=== PATIENT | female | born 1995 | race Caucasian/White ===

== ENCOUNTER 2017-03-23 11:25 | Emergency (ER) | payer SELFPAY ==
[2017-03-23] MEDS ORDERED: ONDANSETRON HCL INJ/PF 4 MG/2 ML SDV IV ONE ×2 (11:45→12:16)
[2017-03-23] MEDS ORDERED: NORMAL SALINE 1000 ML 1,000 ML IV ONE ×2 (11:45→12:50)
--- NOTE | 2017-03-23 11:47 | ER Document Report ---
ED Medical Screen (RME) - General Chief Complaint: Nausea/Vomiting Stated Complaint: VOMITING Time Seen by Provider: 03/23/17 11:45 Mode of Arrival: Ambulatory Information source: Patient TRAVEL OUTSIDE OF THE [place] IN LAST 30 DAYS: No - HPI Patient complains to provider of: abd pain Onset: Other - pt. with 6 day h/o recurrent vomiting with abd pain. Denies diarrhea - Related Data Allergies/Adverse Reactions: No Known Allergies Allergy (Unverified 03/23/17 11:31) Home Medications: Current Home Medications Albuterol Sulfate [Proair HFA] 1 - 2 puff IH Q4 PRN 03/23/17 [History] Past Medical History - Social History Frequency of alcohol use: None Drug Abuse: None Renal/ Medical History: Denies: Hx Peritoneal Dialysis Physical Exam - Vital signs Vitals: Temp Pulse Resp BP Pulse Ox 97.9 F 72 18 133/77 H 98 03/23/17 11:29 03/23/17 11:29 03/23/17 11:29 03/23/17 11:29 03/23/17 11:29 Course - Vital Signs Vital signs: Temp Pulse Resp BP Pulse Ox 97.9 F 72 18 133/77 H 98 03/23/17 11:29 03/23/17 11:29 03/23/17 11:29 03/23/17 11:29 03/23/17 11:29
[2017-03-23 12:25] LABS: ABSOLUTE LYMPHOCYTES (AUTO) 0.9 10^3/uL (0.5-4.7); ABSOLUTE MONOCYTES (AUTO) 0.9 10^3/uL (0.1-1.4); ABSOLUTE NEUT (AUTO) 7.4 10^3/uL (1.7-8.2); BASOPHILS % (AUTO) 0.4 % (0-2); EOSINOPHILS % (AUTO) 0.3 % (0-6); HEMATOCRIT 41.8 % (36.0-47.0); HEMOGLOBIN 14.3 g/dL (12.0-15.5); HGB HCT DIFFERENCE 1.1; MEAN CORPUSCULAR HEMOGLOBIN 30.1 pg (27.0-33.4); MEAN CORPUSCULAR HGB CONC 34.2 g/dL (32.0-36.0); MEAN CORPUSCULAR VOLUME 88 fl (80-97); RED BLOOD COUNT 4.74 10^6/uL (3.72-5.28); RED CELL DISTRIBUTION WIDTH 14.3 % (11.5-14.0); SEGMENTED NEUTROPHILS % (AUTO) 79.3 % (42-78); WHITE BLOOD COUNT 9.3 10^3/uL (4.0-10.5)
--- NOTE | 2017-03-23 12:26 | ER Document Report ---
ED General - General Chief Complaint: Nausea/Vomiting Stated Complaint: VOMITING Time Seen by Provider: 03/23/17 11:45 Mode of Arrival: Ambulatory TRAVEL OUTSIDE OF THE [place] IN LAST 30 DAYS: No - HPI Notes: Patient is a 21-year-old female with no significant past medical history presents the ED complaining of nausea, vomiting, occ loose stool, decreased p.o. intake 6 days along with right lower quadrant abdominal pain. Patient states that she has not been able to keep any food or liquids down. Patient states that the pain will occasionally radiate into her lower back, but is primarily to the right lower quadrant. Patient does not have any hematemesis. Patient states that most of her emesis is yellow/bile. Patient has not had any recent illness. Vkcr-cll-phmeppm meds have not been helping. Patient states that she is currently on day 5 of her menstrual cycle and has been normal/ regular. No other concerns or complaints. Denies any headache, fever, URI, sore throat, chest pain, palpitations, syncope, cough, shortness of breath, wheeze, dyspnea, urinary retention, dysuria, hematuria, loss of control of bowel or bladder, numbness/tingling, saddle anesthesia, muscle paralysis/ weakness, or rash. + smoke, denies IV drug use. - Related Data Allergies/Adverse Reactions: No Known Allergies Allergy (Unverified 03/23/17 11:31) Home Medications: Current Home Medications Albuterol Sulfate [Proair HFA] 1 - 2 puff IH Q4 PRN 03/23/17 [History] Past Medical History - General Information source: Patient - Social History Smoking Status: Current Every Day Smoker Frequency of alcohol use: None Drug Abuse: None Family History: Reviewed & Not Pertinent Patient has suicidal ideation: No Patient has homicidal ideation: No Renal/ Medical History: Denies: Hx Peritoneal Dialysis Review of Systems - Review of Systems Notes: REVIEW OF SYSTEMS: CONSTITUTIONAL : Denies fever, chills, or sweats. Denies recent illness. EENT: Denies eye, ear, throat, or mouth pain or symptoms. Denies nasal or sinus congestion or discharge. Denies throat, tongue, or mouth swelling or difficulty swallowing. CARDIOVASCULAR: Denies chest pain. Denies palpitations or racing or irregular heart beat. Denies ankle edema. RESPIRATORY: Denies cough, cold, or chest congestion. Denies shortness of breath, difficulty breathing, or wheezing. GASTROINTESTINAL: see hpi GENITOURINARY: Denies difficulty urinating, painful urination, burning, frequency, blood in urine, or discharge. FEMALE GENITOURINARY: Denies vaginal bleeding, heavy or abnormal periods, irregular periods. Denies vaginal discharge or odor. MUSCULOSKELETAL: see hpi. Denies joint pain or swelling. SKIN: Denies rash, lesions or sores. NEUROLOGICAL: Denies confusion or altered mental status. Denies passing out or loss of consciousness. Denies dizziness or lightheadedness. Denies headache. Denies weakness or paralysis or loss of use of either side. Denies problems with gait or speech. Denies sensory loss, numbness, or tingling. ALL OTHER SYSTEMS REVIEWED AND NEGATIVE. Dictation was performed using [employer] voice recognition software Physical Exam - Vital signs Vitals: Temp Pulse Resp BP Pulse Ox 97.9 F 72 18 133/77 H 98 03/23/17 11:29 03/23/17 11:29 03/23/17 11:29 03/23/17 11:29 03/23/17 11:29 Notes: PHYSICAL EXAMINATION: GENERAL: Well-appearing, well-nourished and in no acute distress. LUNGS: Breath sounds clear to auscultation bilaterally and equal. No wheezes rales or rhonchi. HEART: Regular rate and rhythm without murmurs, rubs, gallops. ABDOMEN: Soft, nondistended abdomen. no rebound. No masses appreciated. Normal bowel sounds present. No CVA tenderness bilaterally. + tenderness at McBurney's point- brought patient to tears. + mild guarding present to RLQ. Musculoskeletal: LE's b/l: FROM to passive/active. Strength 5+/5. Extremities: No cyanosis, clubbing, or edema b/l. Peripheral pulses 2+. Capillary refill less than 3 seconds. NEUROLOGICAL: Normal speech, normal gait. Normal sensory, motor exams PSYCH: Normal mood, normal affect. SKIN: Warm, Dry, normal turgor, no rashes or lesions noted. Course - Re-evaluation Re-evalutation: 03/23/17 13:58 Pt starting her 2nd liter of NS currently. Pt has not vomited since she was given zofran. Pt continues to have pain to her RLQ and near the umbilicus. + tenderness continues. Reviewed with Dr. Martinez: labs showing renal failure. add urine drug screen. consult gen surg. Reviewed with Dr. Ricks: Rehydrate and recheck bun/cr level. Most likely gastroenteritis. 03/23/17 17:17 CT scan unremarkable for acute pathology. 2L NS to be given to patient to help kidneys s/p IV contrast and mild dehydration. Reglan 10mg given IV for her nausea/vomiting x1 recently. 03/23/17 18:51 Patient is an afebrile, well-hydrated, 21-year-old female who presents the ED with gastroenteritis. Vitals are stable. PE is otherwise unremarkable. Patient is tolerating p.o. Patient only vomited once while in the ED. CBC, hCG , urinalysis was unremarkable for any acute pathology. Her CMP was significant for mildly elevated sodium and acute renal failure. Patient was rehydrated and her creatinine GFR began to improve after [address] scan of the abdomen pelvis was unremarkable for any acute pathology. Another 2 L of normal saline was given thereafter. Low suspicion/risk for acute appendicitis, bowel obstruction, acute cholecystitis, acute cholangitis, perforated diverticulitis, incarcerated hernia, pancreatitis, perforated ulcer, peritonitis, sepsis, pelvic inflammatory disease, ectopic , tubo-ovarian abscess, ovarian torsion, or other systemic emergent condition at this time. Patient is aware that her condition can change from initial presentation and she needs to monitor symptoms closely and seek medical attention if any acute changes. I will send her home with a prescription for Zofran that she may take and use as directed. Conservative measures otherwise for symptoms. Recheck with your PCM in 3-5 days. Consider consult with a powerhouse operator. Return to the ED with any worsening/concerning symptoms otherwise as reviewed in discharge. Patient is in agreement. - Vital Signs Vital signs: Temp Pulse Resp BP Pulse Ox 97.6 F 88 18 132/77 H 99 03/23/17 15:06 03/23/17 15:06 03/23/17 15:06 03/23/17 15:06 03/23/17 15:06 - Laboratory Result Diagrams: 03/23/17 12:04 03/23/17 14:53 Laboratory results interpreted by me: 03/23/17 03/23/17 03/23/17 12:04 12:04 12:40 RDW 14.3 H Seg Neutrophils % 79.3 H Lymphocytes % 10.0 L Sodium 145.6 H Chloride BUN 21 H Creatinine 1.64 H Est GFR ( Amer) 48 L Est GFR (Non-Af Amer) 40 L Calcium Direct Bilirubin 0.5 H Urine Protein 100 H Urine Ketones TRACE H Urine Blood SMALL H 03/23/17 14:53 RDW Seg Neutrophils % Lymphocytes % Sodium Chloride 112 H BUN Creatinine 1.47 H Est GFR ( Amer) 55 L Est GFR (Non-Af Amer) 45 L Calcium 8.2 L Direct Bilirubin Urine Protein Urine Ketones Urine Blood Discharge - Discharge Clinical Impression: Gastroenteritis Condition: Stable Disposition: HOME, SELF-CARE Instructions: Antinausea Medication ([facility]), Gastroenteritis (adult) ([facility]), OTC Antidiarrhea Medication ([facility]), Vomiting ([facility]) Additional Instructions: Maintain adequate fluid and food intake Nebo diet ([employer] Bananas, rice, apples, toast, etc Zofran as needed tylenol if needed Monitor for any worsening symptoms Make sure you are staying hydrated enough to urinate and have normal BM's Recheck with your PCM in 3-5 days--you need to have your Renal (kidney) function tests rechecked this week Consider consult with Gastroenterology for ongoing/worsening symptoms Return to the ED with any worsening symptoms and/or development of fever, headache, chest pain, palpitations, syncope, shortness of breath, trouble breathing, abdominal pain, n/v/d, blood in stool/urine, weakness, or other worsening symptoms that are concerning to you. Prescriptions: Ondansetron [Zofran Odt 4 mg Tablet] 1 - 2 tab PO Q4H PRN #15 tab.rapdis PRN Reason: For Nausea/Vomiting Forms: Elevated Blood Pressure, Smoking Cessation Education Referrals: CATRACHO MORENO FNP-C [Primary Care Provider] - Follow up in 3-5 days MERNA MANZO MD [ACTIVE STAFF] - Follow up in 3-5 days
[2017-03-23 12:41] LABS: ALANINE AMINOTRANSFERASE 29 U/L (9-52); ALBUMIN 4.7 g/dL (3.5-5.0); ALKALINE PHOSPHATASE 74 U/L (38-126); ANION GAP 18 (5-19); ASPARTATE AMINO TRANSFERASE 23 U/L (14-36); BILIRUBIN,DIRECT 0.5 mg/dL (0.0-0.4); BILIRUBIN,TOTAL 0.9 mg/dL (0.2-1.3); BLOOD UREA NITROGEN 21 mg/dL (7-20); CALCIUM 9.6 mg/dL (8.4-10.2); CARBON DIOXIDE 23 mmol/L (22-30); CHLORIDE 105 mmol/L (98-107); CREATININE RESULT 1.64 mg/dL (0.52-1.25); GLUCOSE 108 mg/dL (75-110); POTASSIUM 3.6 mmol/L (3.6-5.0); SODIUM 145.6 mmol/L (137-145)
--- NOTE | 2017-03-23 13:11 | RADIOLOGY REPORT (SQ) ---
EXAM DESCRIPTION: ACUTE ABDOMEN SERIES COMPLETED DATE/TIME: 03/23/2017 1:01 pm REASON FOR STUDY: abd pain COMPARISON: None. NUMBER OF VIEWS: Three views. TECHNIQUE: Frontal chest, supine abdomen and upright/decubitus abdomen radiographic images acquired. LIMITATIONS: None. FINDINGS: CHEST: Lungs clear of infiltrates. FREE AIR: None. No abnormal gas collections. BOWEL GAS PATTERN: Nonobstructive pattern. No dilated loops or air fluid levels. CALCIFICATIONS: No suspicious calcifications. HARDWARE: None in the abdomen. SOFT TISSUES: No gross mass or suggestion of organomegaly. BONES: No acute fracture. No worrisome bone lesions. OTHER: No other significant finding. IMPRESSION: NO RADIOGRAPHIC EVIDENCE FOR ACUTE ABDOMINAL DISEASE. TECHNICAL DOCUMENTATION: JOB ID: [id number] [employer]- All Rights Reserved
[2017-03-23 13:15] LABS: APPEARANCE,URINE CLEAR; BILIRUBIN,URINE NEGATIVE (NEGATIVE); GLUCOSE, URINE NEGATIVE (NEGATIVE); KETONES,URINE TRACE mg/dL (NEGATIVE); LEUKOCYTE ESTERASE,URINE NEGATIVE (NEGATIVE); NITRITE,URINE NEGATIVE (NEGATIVE); PROTEIN,URINE 100 mg/dL (NEGATIVE); URINE SPECIFIC GRAVITY 1.008; UROBILINOGEN,URINE NEGATIVE mg/dL (<2.0)
[2017-03-23 14:48] LABS: URINE BARBITURATES SCREEN NEGATIVE; URINE METHADONE SCREEN NEGATIVE; URINE OPIATES LOW NEGATIVE; URINE PHENCYCLIDINE SCREEN NEGATIVE
[2017-03-23 15:21] LABS: ANION GAP 11 (5-19); BLOOD UREA NITROGEN 19 mg/dL (7-20); CALCIUM 8.2 mg/dL (8.4-10.2); CARBON DIOXIDE 22 mmol/L (22-30); CHLORIDE 112 mmol/L (98-107); CREATININE RESULT 1.47 mg/dL (0.52-1.25); GLUCOSE 89 mg/dL (75-110); POTASSIUM 3.6 mmol/L (3.6-5.0)
[2017-03-23] MEDS ORDERED: MORPHINE SULFATE 10 MG/ML INJ IV ONE (15:54)
--- NOTE | 2017-03-23 17:03 | RADIOLOGY REPORT (SQ) ---
EXAM DESCRIPTION: CT ABD/PELVIS WITH IV ONLY COMPLETED DATE/TIME: 03/23/2017 4:43 pm REASON FOR STUDY: RLQ pain COMPARISON: None. TECHNIQUE: CT scan of the abdomen and pelvis performed using helical scanning technique with dynamic intravenous contrast injection. No oral contrast. Images reviewed with lung, soft tissue, and bone windows. Reconstructed coronal and sagittal MPR images reviewed. Delayed images for evaluation of the urinary system also acquired. All images stored on PACS. All CT scanners at this facility use dose modulation, iterative reconstruction, and/or weight based d osing when appropriate to reduce radiation dose to as low as reasonably achievable (ALARA). [facility]: Dose Right [facility]: CareDose [facility]: Dose Right [facility]: Teradose 4D [facility]: [employer] CONTRAST TYPE AND DOSE: contrast/concentration: Isovue 300.00 mg/ml; Total Contrast Delivered: 99.0 ml; Total Saline Delivered: 47.0 ml RENAL FUNCTION: Creatinine 1.47 RADIATION DOSE: Up-to-date CT equipment and radiation dose reduction techniques were employed. CTDIv ol: 5.4 - 6.3 mGy. DLP: 574 mGy-cm.. LIMITATIONS: None. FINDINGS: LOWER CHEST: No significant findings. No nodules or infiltrates. LIVER: Normal size. No masses. No dilated ducts. SPLEEN: Normal size. No focal lesions. PANCREAS: No masses. No significant calcifications. No adjacent inflammation or peripancreatic fluid collections. Pancreatic duct not dilated. GALLBLADDER: No identified stones by CT criteria. No inflammatory changes to suggest cholecystitis. ADRENAL GLANDS: No significant masses or asymmetry. RIGHT KIDNEY AND URETER: No solid masses. No significant calcifications. No hydronephrosis or hyd roureter. LEFT KIDNEY AND URETER: No solid masses. No significant calcifications. No hydronephrosis or hydr oureter. AORTA AND VESSELS: No aneurysm. No dissection. Renal arteries, SMA, celiac without stenosis. RETROPERITONEUM: No retroperitoneal adenopathy, hemorrhage or masses. BOWEL AND PERITONEAL CAVITY: No masses or inflammatory changes. No free fluid or peritoneal masses. APPENDIX: Normal. PELVIS: No mass. No free fluid. Normal bladder. ABDOMINAL WALL: No masses. No hernias. BONES: No significant or acute findings. OTHER: No other significant finding. IMPRESSION: NO SIGNIFICANT OR ACUTE FINDING IN THE ABDOMEN OR PELVIS ON CT SCAN WITH IV CONTRAST. TECHNICAL DOCUMENTATION: JOB ID: [id number] Quality ID # [id number]: Final reports with documentation of one or more dose reduction techniques (e.g., Au tomated exposure control, adjustment of the mA and/or kV according to patient size, use of iterative reconstruction technique) 2010 [employer]- All Rights Reserved
[2017-03-23] MEDS ORDERED: METOCLOPRAMIDE HCL INJ/PF 10 MG/2 ML SDV IV ONE (17:13)
[2017-03-23] MEDS: NORMAL SALINE 1000 ML 1,000 ML IV PRN ×2 (17:31→17:33)
[2017-03-23 19:17] VITALS: BP 122/76
== END 2017-03-23 19:41 | disposition home or self-care (01) ==
LOC: ER 11:25
DX: K52.9 Noninfective gastroenteritis and colitis, unspecified (principal); R11.2 Nausea with vomiting, unspecified; R63.0 Anorexia; R10.31 Right lower quadrant pain; F17.200 Nicotine dependence, unspecified, uncomplicated
CPT/HCPCS: 99284; 96361; 96374; 96375; 36415; 83690; 85025; 81025; 80048; 80053; 81001; 80307; 74022; 74177; J2765; J2270; J2405; J7030

== ENCOUNTER 2019-02-24 00:10 | Outpatient (CLI) | payer MEDICAID ==
[2019-02-24 01:16] LABS: APPEARANCE,URINE CLOUDY; BILIRUBIN,URINE NEGATIVE (NEGATIVE); COLOR,URINE YELLOW; GLUCOSE, URINE 50 mg/dL (NEGATIVE); KETONES,URINE NEGATIVE (NEGATIVE); LEUKOCYTE ESTERASE,URINE SMALL (NEGATIVE); NITRITE,URINE NEGATIVE (NEGATIVE); PROTEIN,URINE 100 mg/dL (NEGATIVE); URINE SPECIFIC GRAVITY 1.025; UROBILINOGEN,URINE NEGATIVE mg/dL (<2.0)
[2019-02-24 01:47] LABS: URINE AMPHETAMINES SCREEN NEGATIVE; URINE BARBITURATES SCREEN NEGATIVE; URINE BENZODIAZEPINES SCREEN NEGATIVE; URINE COCAINE SCREEN NEGATIVE; URINE METHADONE SCREEN NEGATIVE; URINE PHENCYCLIDINE SCREEN NEGATIVE
--- NOTE | 2019-02-24 01:52 | Non Stress Test Report ---
Non Stress Test Datetime Report Generated by CPN: 02/24/2019 01:51 DEMOGRAPHIC EGA NST: 40.2 INDICATION Indication for Study: Ordered by Provider MONITORING Monitor Explained: Monitor Explained; Test Explained; Patient Verbalized Understanding Time on Monitor: 02/24/2019 00:36 Time off Monitor: 02/24/2019 01:28 NST Duration: 52 NST INTERVENTIONS NST Interventions: PO Hydration Physician Notified NST: Dr. Tino BABY A: [id number] BABY A Movement : Present Contraction Frequency : 0 FHR Baseline : 135 FHR Baseline : 135 Accelerations : 15X15 Decelerations : None Variability : Moderate 6-25bpm NST Review: Meets Criteria for Reactive NST NST Review and Verified By : LOUISA Bruce Results: Reactive NST REPORT Report Trigger: Send Report
[2019-02-24 01:53] LABS: URINE MARIJUANA (THC) SCREEN UNCONFIRMED POSITIVE
== END 2019-02-24 01:46 | disposition home or self-care (01) ==
LOC: LC 00:10
PROVIDERS: ATTEND Obstetrics & Gynecology
PROC: 4A1HXCZ Monitoring of Products of Conception, Cardiac Rate, External Approach (ICD-10-PCS; principal; 2019-02-24)
DX: O48.0 Post-term pregnancy (principal); Z3A.40 40 weeks gestation of pregnancy
CPT/HCPCS: 59025; 81005; 80307; G0480 ×2; 80349

== ENCOUNTER 2019-02-25 05:01 | Inpatient (IN) | payer MEDICAID ==
[2019-02-25] MEDS ORDERED: RINGERS SOLUTION,LACTATED 1,000 ML IV PRN (05:09)
[2019-02-25] MEDS ORDERED: OXYTOCIN/NORMAL SALINE 20 UNIT/1,000 ML RTUINJ IV PRN ×2 (05:09→14:30)
[2019-02-25] MEDS ORDERED: RINGERS SOLUTION,LACTATED 300 ML IV ONE (06:00)
[2019-02-25 07:14] LABS: HEMATOCRIT 29.7 % (36.0-47.0); HEMOGLOBIN 9.4 g/dL (12.0-15.5); MEAN CORPUSCULAR HEMOGLOBIN 25.6 pg (27.0-33.4); MEAN CORPUSCULAR HGB CONC 31.7 g/dL (32.0-36.0); MEAN CORPUSCULAR VOLUME 81 fl (80-97); PLATELET COUNT 174 10^3/uL (150-450); RED BLOOD COUNT 3.68 10^6/uL (3.72-5.28); RED CELL DISTRIBUTION WIDTH 16.3 % (11.5-14.0); WHITE BLOOD COUNT 11.5 10^3/uL (4.0-10.5)
[2019-02-25 07:26] LABS: APPEARANCE,URINE CLEAR; BILIRUBIN,URINE NEGATIVE (NEGATIVE); COLOR,URINE YELLOW; GLUCOSE, URINE NEGATIVE (NEGATIVE); KETONES,URINE NEGATIVE (NEGATIVE); LEUKOCYTE ESTERASE,URINE NEGATIVE (NEGATIVE); NITRITE,URINE NEGATIVE (NEGATIVE); PROTEIN,URINE NEGATIVE (NEGATIVE); URINE SPECIFIC GRAVITY 1.011; UROBILINOGEN,URINE NEGATIVE mg/dL (<2.0)
[2019-02-25 07:45] LABS: URINE AMPHETAMINES SCREEN NEGATIVE; URINE BARBITURATES SCREEN NEGATIVE; URINE BENZODIAZEPINES SCREEN NEGATIVE; URINE COCAINE SCREEN NEGATIVE; URINE MARIJUANA (THC) SCREEN NEGATIVE; URINE METHADONE SCREEN NEGATIVE; URINE PHENCYCLIDINE SCREEN NEGATIVE
[2019-02-25 07:46] LABS: ABSOLUTE LYMPHOCYTES# (MANUAL) 1.7 10^3/uL (0.5-4.7); ABSOLUTE MONOCYTES # (MANUAL) 0.9 10^3/uL (0.1-1.4); ANISOCYTOSIS 1+; BAND NEUTROPHILS % (MANUAL) 4 % (3-5); BASOPHILS % (MANUAL) 0 % (0-2); EOSINOPHILS % (MANUAL) 1 % (0-6); LYMPHOCYTES % (MANUAL) 15 % (13-45); MONOCYTES % (MANUAL) 8 % (3-13); PLATELET COMMENT ADEQUATE; POLYCHROMASIA SLIGHT; SEGMENTED NEUTROPHILS % (MAN) 72 % (42-78); TOTAL CELLS COUNTED 100
[2019-02-25] MEDS ORDERED: OXYTOCIN/NORMAL SALINE 20 UNIT/1,000 ML RTUINJ ONE (08:06)
[2019-02-25] MEDS ORDERED: OXYTOCIN 10 UNIT/ML VIAL ONE (08:06)
[2019-02-25] MEDS ORDERED: LIDOCAINE 1% INJ-PF (10 MG/ML) 30 ML SDV ONE (08:06)
[2019-02-25] MEDS ORDERED: MISOPROSTOL 0.2 MG TABLET ONE (08:06)
--- NOTE | 2019-02-25 08:26 | Admission Physical ---
Datetime Report Generated by CPN: 02/25/2019 08:26 CURRENT ADMISSION Hx Assessment: The History has been Reviewed and is Current Chief Complaint: Scheduled Induction of Labor Indication for Induction: Post Dates Admit Impression : Term, Intrauterine Admit Plan: Admit to Unit; Initiate Labor Protocol; Initiate Labor Augmentation Protocol ALLERGIES Medication Allergies: Unknown Medication Allergies: No Known Allergies (02/24/2019) Latex: Unknown OBSTETRICAL HISTORY EDC: 02/22/2019 00:00 : 2 Para: 1 Term: 1 : 0 SAB: 0 IAB: 0 Livin Gestational Diabetes: No Rh Sensitization: No Incompetent Cervix: No ADENIKE: No Infertility: No ART Treatment: No Uterine Anomaly: No IUGR: No Hx Previous C/S: No Macrosomia: No Hx Loss/Stillborn: No PIH: No Hx : No Placenta Previa/Abruption: No Depression/PP Depression: No PTL/PROM: No Post Hemorrhage: No Current Procedures: NST SEE RECORDS Alcohol: No Marijuana : No Cocaine: No Other Illicit Drugs: No Cigarettes: Current Some Day Smoker. [id number] Cigarette Frequency: < 5 per day Advised to Stop: Yes Cigarette Comments: 1 cigarette per day. MEDICAL HISTORY Diabetes: No Blood Transfusion: No Pulmonary Disease (Asthma, TB): Yes Breast Disease: No Hypertension: No Lead Software Engineer Surgery: No Heart Disease: No Hosp/Surgery: No Autoimmune Disorder: No Anesthetic Complications: No Kidney Disease: No Abnormal Pap Smear: No Neuro/Epilepsy: No Psychiatric Disorders: No Other Medical Diseases: No Hepatitis/Liver Disease: No Significant Family History: No Varicosities/Phlebitis: No Trauma/Violence : No Thyroid Dysfunction: No Medical History Comments: diabetes and heart disease run in pt's mom's family INFECTIOUS HISTORY Gonorrhea: No Genital Herpes: No Chlamydia: No Tuberculosis: No Syphilis: No Hepatitis: No HIV/AIDS Exposure: No Rash or Viral Illness: No HPV: No PHYSICAL EXAM General: Normal HEENT: Normal Neurologic: Normal Thyroid: Normal Heart: Normal Lungs: Normal Breast: Normal Back: Normal Abdomen: Normal Genitourinary Exam: Normal Extremities: Normal DTRs: Normal Pelvic Type: Adequate Vital Signs: Reviewed; Within Normal Limits VAGINAL EXAM Dilatation: 5 Effacement: 75 Station: -2 Contraction Comments: no regular FETUS A EGA: 40.3 Monitoring: External US FHR- Baseline: 140 Variability: Moderate 6-25bpm Accelerations: 15X15 Decelerations: None FHR Category: Category I Presentation: Vertex Admit Comment: at 40.3 wks EGA for IOL d/t GDM -Admit to LDR -NPO and IVFs -GBS negative -Plan for PItocin low dose protocol and AROM when able -Anticipate PLANS FOR LABOR AND DELIVERY Labor and Delivery: None Pain Management: Natural; Medications Feeding Preference: Formula Circumcision: N/A INFORMED CONSENT Informed Consent Obtained: Vaginal Delivery; Risks, Benefits and Alternatives Discussed Signature: with User ID: [email or web address] : with User ID: [email or web address]
--- NOTE | 2019-02-25 13:18 | Delivery Summary ---
Del Sum A-C Datetime Report Generated by CPN: 02/25/2019 13:18 DELIVERY PERSONNEL DELIVERY PERSONNEL: [id number] Delivery Doctor:: Leesa Schroeder MD Labor and Delivery Nurse:: Ellen Ortiz RN Nursery Nurse:: Barbara Lara RN Nursery Nurse:: Thomas NOEL RN Profiling Machine Set Up Operator/STRATEGIC DEBRIEFING SPECIALIST: Lala Juan Carlos, JUDICIAL ASSISTANT MATERNAL INFORMATION Delivery Anesthesia: None Medications After Delivery: Pitocin Bolus-Please Comment; Pitocin Drip 20 Units/1000ml NSS Maternal Complications: None LABOR SUMMARY EDC: 02/22/2019 00:00 No. Babies in Womb: 1 Attempted: No Labor Anesthesia: None LABOR INFORMATION Reason for Induction: Post Dates Onset of Labor: 02/25/2019 09:30 Complete Dilatation: 02/25/2019 12:18 Oxytocin: Augmentation Group B Beta Strep: negative Antibiotics # of Doses: 0 Steroids Given: None Reason Steroids Not Administered: Not Applicable MEMBRANES Membranes Rupture Method: Artificial Rupture of Membranes: 02/25/2019 10:20 Length of Rupture (hr): 2.03 Amniotic Fluid Color: Clear Amniotic Fluid Amount: Small STAGES OF LABOR Stage 1 hr: 2 Stage 1 min: 48 Stage 2 hr: 0 Stage 2 min: 4 Stage 3 hr: 0 Stage 3 min: 4 Total Time in Labor hr: 2 Total Time in Labor min: 56 VAGINAL DELIVERY Episiotomy: None Laceration #1: Perineal Laceration Extension #1: First Degree Laceration Repair: Yes Sponge Count Correct: N/A Sharps Count Correct: N/A BABY A INFORMATION Infant Delivery Date/Time: 02/25/2019 12:22 Method of Delivery: Vaginal Born in Route : No : N/A Forceps: N/A Vacuum Extraction: N/A Shoulder Dystocia : No PRESENTATION/POSITION BABY A Presentation: Cephalic Cephalic Presentation: N/A Vertex Position: Left Occipital Anterior Breech Presentation: N/A PLACENTA INFORMATION BABY A Placenta Delivery Time : 02/25/2019 12:26 Placenta Method of Delivery: Spontaneous Placenta Status: Delivered SCORES BABY A Heart Rate 1 min: >100 bpm Resp Effort 1 min: Slow, Irregular Reflex Irritability 1 min: Cough or Sneeze or Pulls Away Muscle Tone 1 min: Active Motion Color 1 min: Blue/Pale Resuscitation Effort 1 min: Tactile Stimulation SCORE 1 MIN: 7 Heart Rate 5 min: >100 bpm Resp Effort 5 min: Good Cry Reflex Irritability 5 min: Cough or Sneeze or Pulls Away Muscle Tone 5 min: Active Motion Color 5 min: Body [place], Extremities Blue Resuscitation Effort 5 min: Tactile Stimulation SCORE 5 MIN: 9 INFANT INFORMATION BABY A Gestational Age at Delivery: 40.3 Gestational Status: Full Term- 39- 40.6 Weeks Infant Outcome : Liveborn Infant Condition : Stable Infant Sex: Female IDENTIFICATION BABY A Infant Verification Date/Time: 02/25/2019 12:42 ID Band Number: [id number] Mother's Name Verified: Yes RN Verifying : GABRIEL ORTIZ RN Additional Verifying Personnel: F VUONG, WEIGHT/LENGTH BABY A Infant Birthweight (gm): 3831 Infant Weight (lb): 8 Weight (oz): 7 Infant Length (in): 20.75 Length (cm): 52.71 CORD INFORMATION BABY A No. Cord Vessels: 3 Nuchal Cord : N/A Cord Blood Taken: Yes-For Eval (Mom's Blood Type - or O+) Infant Suction: None ASSESSMENT BABY A Complications: None Physical Findings at Delivery: Within Normal Limits Infant Respirations: Appears Normal Skin to Skin: Yes Public Information Officer/ALS Called : No Infant Care By: P NOEL, RN/ R JULIA, RN Transferred To: Remains with Mother BABY B INFORMATION : N/A
[2019-02-25] MEDS ORDERED: ZOLPIDEM TARTRATE 5 MG TABLET PO PRN (14:30)
[2019-02-25] MEDS ORDERED: PROMETHAZINE HCL 25 MG TABLET PO PRN (14:30)
[2019-02-25] MEDS ORDERED: PROMETHAZINE HCL INJ 25 MG/1 ML VIAL IV PRN (14:30)
[2019-02-25] MEDS ORDERED: DIBUCAINE 1% OINTMENT 56 GM TP PRN (14:30)
[2019-02-25] MEDS ORDERED: MEASLES,MUMPS&RUBELLA VACC/PF 0.5 ML VIAL SUBCUT PRN (14:30)
[2019-02-25] MEDS ORDERED: GLYCERIN/WITCH HAZEL LEAF 1 EACH MED..WIPE TP PRN (14:30)
[2019-02-25] MEDS ORDERED: PSEUDOEPHEDRINE HCL 30 MG TABLET PO PRN (14:30)
[2019-02-25] MEDS ORDERED: MAGNESIUM HYDROXIDE SUSP 30 ML UDCUP PO PRN (14:30)
[2019-02-25] MEDS ORDERED: NA PHOS,M-B/NA PHOS,DI-BA (ADULT) 133 ML ENEMA PR PRN (14:30)
[2019-02-25] MEDS ORDERED: DIPHENHYDRAMINE HCL 25 MG CAPSULE PO PRN (14:30)
[2019-02-25] MEDS ORDERED: ACETAMINOPHEN 325 MG TABLET PO PRN (14:30)
[2019-02-25] MEDS ORDERED: PROMETHAZINE HCL 25 MG SUPP.RECT PR PRN (14:30)
[2019-02-25] MEDS ORDERED: DIPH/PERTUSS(ACELL)/TETANUS VAC/PF 0.5 ML SYR (>=10YO) IM PRN (14:30)
[2019-02-25] MEDS ORDERED: ACETAMINOPHEN WITH CODEINE #3 TABLET PO PRN ×2 (14:30)
[2019-02-25] MEDS ORDERED: BENZOCAINE/MENTHOL AEROSOL SPRAY 56 ML TOP PRN (14:30)
[2019-02-25] MEDS: FERROUS SULFATE 325 MG TABLET PO SCH (17:41)
[2019-02-25] MEDS: DOCUSATE SODIUM 100 MG CAPSULE PO SCH (17:41)
[2019-02-25] MEDS: FAMOTIDINE 20 MG TABLET PO SCH (21:10)
[2019-02-25] MEDS: IBUPROFEN 800 MG TABLET PO SCH (21:11)
[2019-02-26 06:30] LABS: HEMOGLOBIN 9.4 g/dL (12.0-15.5); MEAN CORPUSCULAR HEMOGLOBIN 25.9 pg (27.0-33.4); MEAN CORPUSCULAR HGB CONC 32.4 g/dL (32.0-36.0); MEAN CORPUSCULAR VOLUME 80 fl (80-97); PLATELET COUNT 164 10^3/uL (150-450); RED BLOOD COUNT 3.62 10^6/uL (3.72-5.28); RED CELL DISTRIBUTION WIDTH 16.4 % (11.5-14.0); WHITE BLOOD COUNT 11.8 10^3/uL (4.0-10.5)
[2019-02-26] MEDS: IBUPROFEN 800 MG TABLET PO SCH ×3 (06:33→21:43)
--- NOTE | 2019-02-26 09:01 | PDOC PROGRESS REPORT ---
Subjective-OB Progress Note for:: 02/26/19 Subjective: Baby in room, no c/o, voiding, normal lochia, bottle feeding Physical Exam (OB) Vital Signs: Temp Pulse Resp BP Pulse Ox 97.2 F 79 16 135/79 H 98 02/25/19 19:40 02/25/19 19:40 02/25/19 19:40 02/25/19 19:40 02/25/19 19:40 Intake & Output 02/25/19 02/26/19 02/27/19 06:59 06:59 06:59 Intake Total 480 Balance 480 Weight 95.3 kg - PIH/Pre-Eclampsia Headache: Absent Epigastric Pain: No Visual Changes: No - Lochia Lochia Amount: Small 10-25 ml Lochia Color: Rubra/Red - Abdomen Description: Soft, Round Hernia Present: No Fundal Description: Firm, Midline Fundal Height: u/u - u/2 Objective-Diagnostic Laboratory: 02/26/19 05:46 02/26/19 05:46 WBC 11.8 H RBC 3.62 L Hgb 9.4 L Hct 29.0 L MCV 80 MCH 25.9 L MCHC 32.4 RDW 16.4 H Plt Count 164 Assessment and Plan(PN) - Assessment and Plan (1) Limited care Qualifiers: Trimester: unspecified trimester Qualified Code(s): O09.30 - Supervision of with insufficient care, unspecified trimester Is this a current diagnosis for this admission?: Yes (2) Obstetrical laceration, first degree Is this a current diagnosis for this admission?: Yes (3) Vaginal delivery Is this a current diagnosis for this admission?: Yes (4) Post term over 40 weeks Is this a current diagnosis for this admission?: Yes (5) Encounter for induction of labor Is this a current diagnosis for this admission?: Yes - Time Spent with Patient Time with patient: Less than 15 minutes Medications reviewed and adjusted accordingly: Yes - Disposition Anticipated Discharge: Home Within: within 24 hours
[2019-02-26] MEDS: DOCUSATE SODIUM 100 MG CAPSULE PO SCH ×2 (09:04→17:07)
[2019-02-26] MEDS: PRENATAL VITAMIN W DHA CAPSULE PO SCH (09:04)
[2019-02-26] MEDS: FERROUS SULFATE 325 MG TABLET PO SCH ×2 (09:04→17:07)
[2019-02-26] MEDS: FAMOTIDINE 20 MG TABLET PO SCH ×2 (09:04→21:43)
[2019-02-26] MEDS: SENNOSIDES/DOCUSATE 8.6-50 MG 1 EACH TABLET PO SCH (09:05)
[2019-02-27] MEDS: IBUPROFEN 800 MG TABLET PO SCH (05:33)
[2019-02-27 09:05] VITALS: BP 117/57
--- NOTE | 2019-02-27 09:18 | PDOC PROGRESS REPORT ---
Subjective-OB Progress Note for:: 02/27/19 Subjective: Doing well, excited to go home, bottle feeding, wearing bra, lochia scant Physical Exam (OB) Vital Signs: Temp Pulse Resp BP Pulse Ox 98.3 F 79 18 117/57 L 99 02/27/19 07:46 02/27/19 07:46 02/26/19 19:51 02/27/19 07:46 02/27/19 07:46 Intake & Output 02/26/19 02/27/19 02/28/19 06:59 06:59 06:59 Intake Total 480 1000 Balance 480 1000 - PIH/Pre-Eclampsia DTR's: 1 + Clonus: Negative Headache: Absent Epigastric Pain: No Visual Changes: No - Lochia Lochia Amount: Small 10-25 ml Lochia Color: Rubra/Red - Abdomen Description: Soft, Round Hernia Present: No Fundal Description: Firm, Midline Fundal Height: u/u - u/2 Objective-Diagnostic Laboratory: 02/26/19 05:46 Assessment and Plan(PN) - Assessment and Plan (1) Limited care Qualifiers: Trimester: unspecified trimester Qualified Code(s): O09.30 - Supervision of with insufficient care, unspecified trimester Is this a current diagnosis for this admission?: Yes (2) Obstetrical laceration, first degree Is this a current diagnosis for this admission?: Yes (3) Vaginal delivery Is this a current diagnosis for this admission?: Yes (4) Post term over 40 weeks Is this a current diagnosis for this admission?: Yes (5) Encounter for induction of labor Is this a current diagnosis for this admission?: Yes - Time Spent with Patient Time with patient: Less than 15 minutes Medications reviewed and adjusted accordingly: Yes - Disposition Anticipated Discharge: Home Within: within 24 hours
--- NOTE | 2019-02-27 09:24 | PDOC DISCHARGE SUMMARY ---
Impression - Admit/DC Date/PCP Admission Date/Primary Care Provider: 02/25/19 05:01 CINTHYA MAKI Discharge Date: 02/27/19 - Discharge Diagnosis (1) Limited care Is this a current diagnosis for this admission?: Yes (2) Obstetrical laceration, first degree Is this a current diagnosis for this admission?: Yes (3) Vaginal delivery Is this a current diagnosis for this admission?: Yes (4) Post term over 40 weeks Is this a current diagnosis for this admission?: Yes (5) Encounter for induction of labor Is this a current diagnosis for this admission?: Yes - Additional Information Discharge Diet: As Tolerated, Regular Discharge Activity: Activity As Tolerated, No Lifting Over 10 Pounds, No Lifting/Push/Pulling, Pelvic Rest Referrals: [facility] [Provider Group] ([facility] 2 weeks) Home Medications: Prenat 115/Iron Fum/Folic/Dss [ 19 Tablet] 1 each PO DAILY 02/24/19 HPI Gestational Age: 40.3 Reason(s) for Admission: Onset of Labor Admission Note: augmented with Pitocin Procedures: NST, Ultrasound Intrapartum Procedure(s): Spontaneous Vaginal Delivery Complication(s): Laceration-Perineal Laceration-Degree: 1st - fmale. 7/9, wt 8-7 Hospital Course Hospital Course: routine Results Laboratory Results: WBC 11.8 10^3/uL (4.0-10.5) H 02/26/19 05:46 RBC 3.62 10^6/uL (3.72-5.28) L 02/26/19 05:46 Hgb 9.4 g/dL (12.0-15.5) L 02/26/19 05:46 Hct 29.0 % (36.0-47.0) L 02/26/19 05:46 MCV 80 fl (80-97) 02/26/19 05:46 MCH 25.9 pg (27.0-33.4) L 02/26/19 05:46 MCHC 32.4 g/dL (32.0-36.0) 02/26/19 05:46 RDW 16.4 % (11.5-14.0) H 02/26/19 05:46 Plt Count 164 10^3/uL (150-450) 02/26/19 05:46 Lymph % (Auto) Not Reportable 02/25/19 06:47 Johnson % (Auto) Not Reportable 02/25/19 06:47 Eos % (Auto) Not Reportable 02/25/19 06:47 Baso % (Auto) Not Reportable 02/25/19 06:47 Absolute Neuts (auto) Not Reportable 02/25/19 06:47 Absolute Lymphs (auto) Not Reportable 02/25/19 06:47 Absolute Monos (auto) Not Reportable 02/25/19 06:47 Absolute Eos (auto) Not Reportable 02/25/19 06:47 Absolute Basos (auto) Not Reportable 02/25/19 06:47 Total Counted 100 02/25/19 06:47 Seg Neutrophils % Not Reportable 02/25/19 06:47 Seg Neuts % (Manual) 72 % (42-78) 02/25/19 06:47 Band Neutrophils % 4 % (3-5) 02/25/19 06:47 Lymphocytes % (Manual) 15 % (13-45) 02/25/19 06:47 Monocytes % (Manual) 8 % (3-13) 02/25/19 06:47 Eosinophils % (Manual) 1 % (0-6) 02/25/19 06:47 Basophils % (Manual) 0 % (0-2) 02/25/19 06:47 Abs Neuts (Manual) 8.7 10^3/uL (1.7-8.2) H 02/25/19 06:47 Abs Lymphs (Manual) 1.7 10^3/uL (0.5-4.7) 02/25/19 06:47 Abs Monocytes (Manual) 0.9 10^3/uL (0.1-1.4) 02/25/19 06:47 Absolute Eos (Manual) 0.1 10^3/uL (0.0-0.6) 02/25/19 06:47 Abs Basophils (Manual) 0.0 10^3/uL (0.0-0.2) 02/25/19 06:47 Platelet Comment ADEQUATE 02/25/19 06:47 Polychromasia SLIGHT 02/25/19 06:47 Anisocytosis 1+ 02/25/19 06:47 Urine Color YELLOW 02/25/19 05:15 Urine Appearance CLEAR 02/25/19 05:15 Urine pH 7.0 (5.0-9.0) 02/25/19 05:15 Ur Specific [place] 1.011 02/25/19 05:15 Urine Protein NEGATIVE mg/dL (NEGATIVE) 02/25/19 05:15 Urine Glucose (UA) NEGATIVE mg/dL (NEGATIVE) 02/25/19 05:15 Urine Ketones NEGATIVE mg/dL (NEGATIVE) 02/25/19 05:15 Urine Blood NEGATIVE (NEGATIVE) 02/25/19 05:15 Urine Nitrite NEGATIVE (NEGATIVE) 02/25/19 05:15 Urine Bilirubin NEGATIVE (NEGATIVE) 02/25/19 05:15 Urine Urobilinogen NEGATIVE mg/dL (<2.0) 02/25/19 05:15 Ur Leukocyte Esterase NEGATIVE (NEGATIVE) 02/25/19 05:15 Urine Ascorbic Acid NEGATIVE (NEGATIVE) 02/25/19 05:15 Urine Opiates Screen NEGATIVE 02/25/19 05:15 Urine Methadone Screen NEGATIVE 02/25/19 05:15 Ur Barbiturates Screen NEGATIVE 02/25/19 05:15 Ur Phencyclidine Scrn NEGATIVE 02/25/19 05:15 Ur Amphetamines Screen NEGATIVE 02/25/19 05:15 U Benzodiazepines Scrn NEGATIVE 02/25/19 05:15 Urine Cocaine Screen NEGATIVE 02/25/19 05:15 U Marijuana (THC) Screen NEGATIVE 02/25/19 05:15 RPR NONREACTIVE (NONREACTIVE) 02/25/19 06:47 Blood Type O POSITIVE 02/25/19 06:47 Antibody Screen NEGATIVE 02/25/19 06:47 Plan Health Concerns: smoker, FOB in skilled nursing Plan of Treatment: d/c home, baby home with mother, stop smoking and no smoking around baby, has safe environment Goals: routine Time Spent: Less than 30 Minutes
[2019-02-27] MEDS: SENNOSIDES/DOCUSATE 8.6-50 MG 1 EACH TABLET PO SCH (09:41)
[2019-02-27] MEDS: FAMOTIDINE 20 MG TABLET PO SCH (09:41)
[2019-02-27] MEDS: DOCUSATE SODIUM 100 MG CAPSULE PO SCH (09:41)
[2019-02-27] MEDS: FERROUS SULFATE 325 MG TABLET PO SCH (09:41)
[2019-02-27] MEDS: PRENATAL VITAMIN W DHA CAPSULE PO SCH (09:42)
== END 2019-02-27 13:10 | disposition home or self-care (01) | DRG 807 ==
LOC: LR 05:01 → 2S 15:15
PROVIDERS: ADMIT Obstetrics & Gynecology; ATTEND Student in an Organized Health Care Education/Training Program
PROC: 10E0XZZ Delivery of Products of Conception, External Approach (ICD-10-PCS; principal; 2019-02-25)
PROC: 0HQ9XZZ Repair Perineum Skin, External Approach (ICD-10-PCS; 2019-02-25)
PROC: 10907ZC Drainage of Amniotic Fluid, Therapeutic from Products of Conception, Via Natural or Artificial Opening (ICD-10-PCS; 2019-02-25)
DX: O48.0 Post-term pregnancy (principal); Z37.0 Single live birth; O70.0 First degree perineal laceration during delivery; Z3A.40 40 weeks gestation of pregnancy; O99.334 Smoking (tobacco) complicating childbirth; F17.210 Nicotine dependence, cigarettes, uncomplicated; Z82.49 Family history of ischemic heart disease and other diseases of the circulatory system
CPT/HCPCS: 36415; 80307; 81005; 85025; 85027; 86592; 86850; 86900; 86901; 88307; J2590; J3490